=== PATIENT | female | born 1980 | race Caucasian/White ===

== ENCOUNTER 2019-05-06 07:18 | Inpatient (IN) | payer BC ==
[~2019-05-06] VITALS: Ht 160 cm; Wt 63.6 kg
[2019-05-06] VITALS (22 sets, daily range): BP systolic 95–121; BP diastolic 52–81; PULSE 52–93; TEMP 97.8–98.9
[~2019-05-06 07:18] MED LIST: COLACE 100100 MG/CAP PO; MOTRIN 800800 MG/TAB PO; PRENATABS FA1 TAB PO; PRENATAL1 TA1 PO; PROFERRIN ES12 MG PO; ZOVIRAX400 MG
[2019-05-06] MEDS ORDERED: SLOW FE142 MG PO (10:16)
--- NOTE | 2019-05-06 10:20 | NUR ---
G4L3 at 39.1 weeks gestation to LDR6 for induction of labor. Patient changed into gown and wedged to left side in bed. EFMs explained and applied. FHR 130 bpm and reactive. Irregular CTX per toco. VSS. Assessment completed, consents signed. IV started in left forearm with LR infusing per orders. 1025 Pen G started per GBS+ protocol. Plan of care reviewed with patient and spouse.
--- NOTE | 2019-05-06 12:30 | NUR ---
Dr. Judge to room. Reviews FHR tracing. SVE with AROM. /-2 with clear fluid noted. Plan of care reviewed.
[2019-05-06 13:16] LABS: HEMOGLOBIN 10.8 g/dl (12.5-16.0); MEAN CELL VOLUME 91 fl (80.0-100.0); MEAN CORPUSCULAR HEMOGLOBIN 31 pg (27.0-31.0); MEAN CORPUSCULAR HGB CONC 34 g/dl (33.0-37.0); MEAN PLATELET VOLUME 10.3 fl (7.4-10.4); PLATELET COUNT 222 K/mm3 (130-400); REDCELL DISTRIBUTION WIDTH-CV 13.2 % (11.5-14.5)
[2019-05-06 13:32] LABS: HEMATOCRIT 31.9 % (37.0-47.0)
--- NOTE | 2019-05-06 13:45 | NUR ---
Pitocin started at 2mu per orders and protocol.
[2019-05-06 14:01] LABS: LYMPHOCYTE 30 % (20.0-51.0); METAMYELOCYTE 3 % (0-0); NEUTROPHILS 60 % (42.0-75.2); NUCLEATED RED BLOOD CELL 1 (0-6)
[2019-05-06 14:02] LABS: PLATELET ESTIMATE NORMAL (NORMAL)
--- NOTE | 2019-05-06 15:17 | NUR ---
1445 PATIENT STATES CONTRACTIONS ARE GETTING STRONGER. WANTS EPIDURAL Laura ARRINGTON CALLED. 1447 PATIENT SITS UP ON EDGE OF BED FOR EPIDURAL PLACEMENT. TOLERATES WELL. SEE Laura ARRINGTON NOTED FOR QUESTIONS IF NEEDED.
--- NOTE | 2019-05-06 16:03 | NUR ---
1526 PATIENT FEELS PRESSURE. SVE /0 DR STOVER CALLED TO COME TO DELIVERY NOW. 1530 DR STOVER AT BEDSIDE. PATIENT WILL PUSH WITH CONTRACTIONS. [address] STOVER. CORD CLAMPED AND CUT AND BABY TO MOMS CHEST SKIN TO SKIN. STRONG CRY NOTED. 1537 PLACENTA DELIVERY AT [facility] STARTED AT 333 PER PROTOCL. FUNDUS BOGGY MASSAGED UNTIL FIRM. MODERATE AMOUNT OF BLEEDING NOTED. 1540 METHERGINE GIVEN IN LEFT THIGH PER DR TAYLOR
[2019-05-07 07:34] VITALS: BP 98/48; PULSE 78; TEMP 97.8
--- NOTE | 2019-05-07 09:36 | NUR ---
Initial visit; Patient thanked Director Of Athletics for offering congratulations for the of her son. Director Of Athletics thanked her for choosing [facility].
[2019-05-07 16:19] VITALS: BP 100/68; PULSE 68; TEMP 97.8
[2019-05-07 19:44] VITALS: BP 104/59; PULSE 60; TEMP 97.1
[2019-05-08 07:35] VITALS: BP 97/64; PULSE 78; TEMP 98.1
[2019-05-08] MEDS ORDERED: MOTRIN 800800 MG/TAB PO (08:19)
== END 2019-05-08 11:18 | disposition home or self-care (01) | DRG 807 ==
LOC: LDR 07:18 → OB 16:41
PROVIDERS: ADMIT Obstetrics & Gynecology
PROC: 10E0XZZ Delivery of Products of Conception, External Approach (ICD-10-PCS; principal; 2019-05-06)
PROC: 10907ZC Drainage of Amniotic Fluid, Therapeutic from Products of Conception, Via Natural or Artificial Opening (ICD-10-PCS; 2019-05-06)
DX: O99.824 Streptococcus B carrier state complicating childbirth (principal); Z37.0 Single live birth; Z3A.39 39 weeks gestation of pregnancy; O71.82 Other specified trauma to perineum and vulva; Z23 Encounter for immunization
CPT/HCPCS: J2210; J2540; J2590; J7120

== ENCOUNTER 2020-12-18 08:13 | Day surgery (SDC) | payer BC ==
[~2020-12-18] VITALS: Ht 157.5 cm; Wt 52.1 kg
[~2020-12-18 08:13] MED LIST changes: +SLOW FE142 MG PO
[2020-12-18] MEDS ORDERED: ZOVIRAX400 MG PO (08:42)
[2020-12-18 08:50] VITALS: BP 101/68; PULSE 81; TEMP 98.2
[2020-12-18 09:25] VITALS: BP 104/70; PULSE 83; TEMP 98.4
--- NOTE | 2020-12-18 09:25 | NUR ---
Patient arrives back to [facility] alert, denies pain or nausea. Patient ambulates from cart to chair with standby assist and without any complications. Patient monitor applied, vitals stable. Patient's spouse at bedside.
--- NOTE | 2020-12-18 09:30 | NUR ---
Patient given soda and crackers.
[2020-12-18 09:45] VITALS: BP 102/74; BP 104/70; PULSE 76; PULSE 83; TEMP 98.4
--- NOTE | 2020-12-18 09:45 | NUR ---
Patient tolerated food and drink without any nausea. Vitals stable.
[2020-12-18 10:00] VITALS: BP 102/74; BP 111/69; PULSE 68; PULSE 76
--- NOTE | 2020-12-18 10:05 | NUR ---
Dismissal instructions gone over with patient and patient's spouse. Both verbalize understanding and all questions answered.
--- NOTE | 2020-12-18 10:10 | NUR ---
Patient dismissed to private vehilce at patient enterance via wheelchair without any complications. Patient and spouse leave thanking staff for services.
== END 2020-12-18 10:10 | disposition home or self-care (01) ==
LOC: SDCO
DX: Z12.11 Encounter for screening for malignant neoplasm of colon (principal); U07.1 COVID-19; Z90.89 Acquired absence of other organs; Z79.899 Other long term (current) drug therapy; Z80.0 Family history of malignant neoplasm of digestive organs; Z83.71 Family history of colonic polyps
CPT/HCPCS: J3010; J7120

== ENCOUNTER → 2021-10-22 | Outpatient (CLI) | payer BC ==
[~2021-10-22] MED LIST changes: +ZOVIRAX400 MG PO
== END ==
LOC: MC.RAD 14:01
DX: Z12.31 Encounter for screening mammogram for malignant neoplasm of breast (principal)